=== PATIENT | female | born 1980 | race Caucasian/White ===

== ENCOUNTER → 2019-02-21 06:47 | Outpatient (CLI) | payer MEDICAID, SELFPAY ==
[2019-02-21 08:06] LABS: Glucose GTT-Gestation. Fasting 92 mg/dL (<105)
[2019-02-21 08:30] LABS: Glucose GTT-Gestational 1 Hr 188 mg/dL (<190)
[2019-02-21 09:41] LABS: Glucose GTT-Gestational 2 Hr 157 mg/dL (<165)
[2019-02-21 10:43] LABS: Glucose GTT-Gestational 3 Hr 65 L (<145)
== END ==
PROVIDERS: Family Provider Nurse Practitioner Family; PCP Nurse Practitioner Family
DX: R73.02 Impaired glucose tolerance (oral) (principal)
CPT/HCPCS: 36415; 82951; 82952

== ENCOUNTER 2023-01-03 08:48 | Emergency (ER) | payer OTHER, MEDICAID, SELFPAY ==
[2023-01-03 08:51] VITALS: BP 139/96; PULSE 107; RESP 16; TEMP 36.2; O2SAT 100; BMI 36.2
--- NOTE | 2023-01-03 09:12 | EDS_ITS ---
HPI History of Present Illness Chief Complaint: Abscess Detail of Chief Complaint: Right-sided facial pain, swelling and dental pain Informant: patient and spouse/S.O. Onset/Context/Timing Onset: Days Context: Sudden Onset Timing: Continuous Quality: Pain Location: Right upper second bicuspid or first molar, tooth #3 or 4 Current Severity: Mild Maximum Severity: Severe Worsened by: Cold and hot liquids Relieved by: NSAIDs and Topicals Associated Symptoms Assocated Symptom - Dental: face swelling, cold sensitivity and hot sensitivity; Negative for fever or jaw swelling Narrative Narrative: Patient is a 42-year-old woman who was seen in urgent care and placed on Augmentin. She presents because of increased facial swelling. She has an appointment with her dentist at 1600. She has history of hypothyroidism. There is no history rheumatic fever, heart murmur, SBE or being on immunosuppressive meds. She has no allergies to pain medicine. She is able to open and close her mouth completely. She does have sensitivity to cold and hot liquids. She denies subjective or documented fever. She denies shaking chills. She denies change in voice or difficulty swallowing. She has not noted any lesions on her skin. Prior similar symptoms: No Recent Illness/Hospitalization: Yes PFSH PFS Home Medications carbamazepine 200 mg tablet 100 mg PO BIDCM #30 tabs 08/23/17 [Rx Last Taken Unknown] hydrocodone-acetaminophen 5-325mg 5mg-325mg 1 - 2 tab PO Q4H PRN PRN Pain ##20 08/23/17 [Rx Last Taken Unknown] levothyroxine 175 mcg tablet (Synthroid) 175 mcg PO DAILY 08/23/17 [History Last Taken Unknown] naproxen 500 mg tablet 500 mg PO BID #14 tabs 01/03/23 [Rx Last Taken Unknown] oxycodone-acetaminophen 5 mg-325 mg tablet 1 tab PO Q6H PRN PRN pain 5 days #20 TABLETS 01/03/23 [Rx Last Taken Unknown] Allergy/AdvReac Type Severity Reaction Status Date / Time No Known Allergies Allergy Verified 01/03/23 08:51 Social History (Updated 01/03/23 @ 09:[address] Francisco Larsen MD) household members: spouse Smoking Status: Current every day smoker substance use type: does not use ROS ROS ED Constitutional Constitutional ED: Denies chills, fever(s), subjective, sweats or weight loss Eyes Eyes: Reports other Details: There is no complaint of photophobia. She does not have pain with movement of her eye. ; Denies blurry vision or change in vision ENT ENT ED: Reports other Details: There is evidence of gingival-itis and antonia odontal disease. Tooth #2, 3 and 4 have silver caps. ; Denies ear pain, rhinorrhea or sore throat Cardiovascular Cardiovascular: Reports other Details: Greater detail HPI narrative ; Denies chest pain or palpitations Respiratory/Chest Respiratory/Chest: Denies cough or dyspnea Gastrointestinal Gastrointestinal: Denies nausea or vomiting Integumentary Reports abscess; Denies rash Allergic/Immunologic Allergic/Immunologic ED: Denies mouth swelling, tongue swelling or urticaria EXAM Physical Exam Const Vital Signs: 01/03/23 08:51 Temperature 97.2 F L Temperature Source Temporal Pulse Rate 107 H Respiratory Rate 16 Blood Pressure 139/96 H Blood Pressure Mean 110 Pulse Ox 100 Oxygen Delivery Method Room Air Positive well nourished, well developed and obese Constitutional Narrative: Patient's face is asymmetric with swelling right side over the right maxillary region. There is infra right periorbital edema noted. There is no erythema, warmth, induration. General Appearance ED: well developed and NAD Nutritional Appearance: obese HEENT Reports other HEENT Narrative: Documented under the general portion of the chart. There is no preauricular lymphadenopathy. tenderness and other; Negative for trauma Face and Sinus: Negative for sinuses nontender Mouth ED: Yes oral and palatal mucosa normal, Yes lips normal, Yes tongue normal, Yes salivary gland normal, No mouth trauma and Yes oral and palatal mucosa abnormal Mouth: oral and palatal mucosa normal, lips normal, tongue normal, salivary gland normal, No mouth trauma and oral and palatal mucosa abnormal Teeth and Gingiva: abnormal tooth and associated gingiva; Negative for caries Throat: posterior oropharynx normal Eyes PERRL and EOMs intact bilaterally Eyes Narrative: There is no pain with movement of the eyes. There is no hyperesthesia in formalin nerve. There is no proptosis. General Eye ED: Negative for pale conjunctiva or scleral icterus Neck no lymphadenopathy, supple and no JVD Resp normal respiratory effort, no retractions and clear to auscultation bilaterally Cardio regular rate, regular rhythm, S1 normal heart sound, S2 normal heart sound and no murmurs Neuro oriented x3, CN's II-XII intact bilaterally and moves all extremities Psych mental status grossly normal Skin no rashes or lesions noted and no wounds MDM MDM MDM Narrative Medical decision making narrative: Clinically patient has a periapical abscess of tooth #3 or 4. There is also historical medic pulpitis. Patient is on antibiotic. We will treat with NSAID and opiate analgesia for pain. She has been instructed to keep her appointment with the dentist. She was told that she will need root canal. Until she is seen by the dentist and has definitive work the pain will not resolve since she has pulpitis. Clinically there is no evidence for SBE. There is no Janeway lesions, splinter hemorrhages Osler nodes etc. Treatment and Re-Evaluation Narrative: Patient received a dose of Naprosyn and [place] in the department. Discharge Plan Triage Chief Complaint: Abscess ED Provider: Francisco Larsen Dx/Rx/DC Orders Clinical Impression: Acute periapical abscess, Symptomatic irreversible pulpitis, Gingivitis, acute Instructions: ED Abscess Antibiotic Treatment Only Prescriptions: New oxycodone-acetaminophen [oxycodone-acetaminophen] 5-325 mg tablet 1 tab PO Q6H PRN PRN (Reason: pain) 5 Days Qty: 20 0RF naproxen 500 mg tablet 500 mg PO BID Qty: 14 0RF No Action levothyroxine [Synthroid] 175 MCG tablet 175 mcg PO DAILY carbamazepine 200 MG tablet 100 mg PO BIDCM Qty: 30 0RF hydrocodone-acetaminophen 1 TABLET tablet 1 - 2 tab PO Q4H PRN PRN (Reason: Pain) Qty: 20 0RF Primary Care Provider: Kay Arechiga NP Referrals: Kay Arechiga HOST COORDINATOR, HOST COORDINATOR-C [Primary Care Provider] - Disposition Disposition: Home, Self Care
[2023-01-03] MEDS: Naproxen 250 MG Tablet 500 MG PO (09:33)
[2023-01-03] MEDS: oxyCODONE 5 MG Tablet PO (09:34)
== END 2023-01-03 09:51 | disposition home or self-care (01) ==
PROVIDERS: Emergency Provider Emergency Medicine; PCP Nurse Practitioner Family; Visit Provider Emergency Medicine
DX: K04.7 Periapical abscess without sinus (principal); F17.200 Nicotine dependence, unspecified, uncomplicated; K04.02 Irreversible pulpitis; K05.00 Acute gingivitis, plaque induced; E66.9 Obesity, unspecified
CPT/HCPCS: 90715; 99283